=== PATIENT | male | born 1965 ===

== ENCOUNTER → 2017-06-28 | Outpatient (CLI) | payer BC ==
[2017-06-29 14:17] LABS: Basophils % (A) 1 %; CH 30.9; CHCM 33.8; Eosinophils # (A) 0.2 k/uL (0-0.7); Eosinophils % (A) 3 %; HCT 42.9 % (39.0-53.0); HDW 2.74; HGB 14.1 gm/dL (13.0-17.5); Luc # (Auto) 0.11; Luc % (Auto) 2; Lymphocytes % (A) 40 %; MCH 30.2 pg (25.0-35.0); MCHC 32.9 g/dL (31.0-37.0); MCV 91.8 fL (80.0-100.0); Mean Platelet Volume 7.1; Monocytes # (A) 0.4 k/uL (0-1.0); Monocytes % (A) 7 %; Neutrophils # (A) 2.3 k/uL (1.3-7.7); Neutrophils % (A) 46 %; RBC 4.67 m/uL (4.30-5.90); RDW 12.6 % (11.5-15.5); WBC 5.1 k/uL (3.8-10.6); WBC (Perox) 5.27
[2017-06-29 15:08] LABS: ALT 68 U/L (21-72); AST 36 U/L (17-59); Alkaline Phosphatase 40 U/L (38-126); Anion Gap 9 mmol/L; Blood Urea Nitrogen 17 mg/dL (9-20); Calcium 9.5 mg/dL (8.4-10.2); Carbon Dioxide 31 mmol/L (22-30); Chloride 104 mmol/L (98-107); Glucose 116 mg/dL (74-99); Non-African American GFR(MDRD) >60 (>60 ml/min/1.73 sqM); Potassium 4.4 mmol/L (3.5-5.1); Sodium 144 mmol/L (137-145); Total Bilirubin 0.4 mg/dL (0.2-1.3); Total Protein 6.3 g/dL (6.3-8.2)
[2017-06-29 15:54] LABS: Cholesterol 165 mg/dL (<200); HDL Cholesterol 47 mg/dL (40-60); Prostate Specific Antigen 0.42 ng/mL (0.00-4.00)
== END | disposition home or self-care (01) ==
LOC: LABWHC1 12:30
PROVIDERS: ATTEND Psychiatry & Neurology Pain Medicine
DX: Z00.00 Encounter for general adult medical examination without abnormal findings (principal); E78.00 Pure hypercholesterolemia, unspecified; E03.9 Hypothyroidism, unspecified; E55.9 Vitamin D deficiency, unspecified; E34.9 Endocrine disorder, unspecified; I10 Essential (primary) hypertension; R41.3 Other amnesia
CPT/HCPCS: 36415; 80053; 80061; 82306; 82607; 84153; 84207; 84403; 84439; 84443; 85025

== ENCOUNTER → 2017-08-27 | Outpatient (CLI) | payer BC ==
--- NOTE | 2017-08-27 15:03 | CONS ---
CONSULTATION REASON FOR CONSULTATION: Sleep apnea This is a 52-year-old male patient, who was referred to me for evaluation of sleep apnea/sleep breathing disorder. The patient has history of chronic anxiety and depression and he was treated to psychiatry with a combination of medications in the past. Specifically the patient was receiving a combination of Lexapro, Xanax, trazodone and Lamictal. Addition of trazodone was to improve this patient's sleep as the patient was having sleep fragmentation and difficulty maintaining sleep. He was also taking 10 mg of Ambien at nighttime. This combination of medications caused significant side effects as the patient was complaining of short-term memory loss and feeling drowsy and sleepy throughout the day. For the past 6 months, the patient gradually weaned himself off the antidepressant medication. Currently he is off Lamictal, Lexapro and trazodone and Xanax. He has been using Ambien 10 mg at bedtime. The drowsiness and memory loss, he was complaining of improved while him being off of these medications. Under the care of Dr. Winn the patient was not found to have any other neurologic disease or disorder. He is not having any symptoms of active depression for now. No active anxiety. He has hypothyroidism and he is on thyroid hormone replacement. In terms of his sleep quality, the patient used to be working the [employer] long [employer] for many years and his work schedule was between 6:00 am and 2:00 pm. As such, he had to get up from sleep at 4:30 am. Now that he is retired he is going to bed at 3:00 am in the morning. He gets out of bed at 10 a.m. in the morning. He averages around 7 hours of sleep a night. He is taking Ambien 10 mg at bedtime. He is able to initiate and maintain sleep without any major difficulties. He has some mild chronic soft snoring. No witnessed apneas. No nocturnal grinding of the teeth. No restlessness in lower extremities. No episodes of choking or gasping for air. No nocturia. Denies having a dry mouth in the morning. He does not take any naps during the day and he is able to drive without having to fall asleep. His current [place] score is 0. No head trauma. No history of any meningitis. No history of any substance abuse. PAST MEDICAL HISTORY: 1. Anxiety. 2. Depression. 3. Hypothyroidism. 4. Hyperlipidemia. 5. Chronic insomnia. PAST SURGICAL HISTORY: Includes none. ALLERGIES: None. Drug allergies are none. MEDICATIONS ARE: 1. Ambien 10 mg at bedtime. 2. Crestor 20 mg p.o. daily. 3. Levoxyl 175 mcg p.o. daily. SOCIAL HISTORY: The patient is a nonsmoker. No history of alcohol. No IV drugs. FAMILY HISTORY: Negative for sleep breathing disorder, insomnia or obstructive sleep apnea. REVIEW OF SYSTEMS: A 12-point review of system was done. The patient denies having any recent weight gain. In fact, he has lost around 12 pounds over the past 1 year. Appetite is good. No fever, chills or night sweats. No morning headaches. No altered mentation. Memory is improving. See discussion above. No active symptoms of severe anxiety or depression. No feeling of worthlessness. No suicidal ideation. No cough, sputum production, chest tightness or wheezing. No nausea vomiting or diarrhea. Abdominal pain. No dysuria, frequency or urgency. No nocturia. No grinding of the teeth. No palpitations or heartburn. No restlessness in lower extremities. No claustrophobia or sexual dysfunction. No focal neurological deficits. No motor weakness upper and lower extremities. No skin lesions. PHYSICAL EXAMINATION: His current vitals BP is 146/81, pulse 84, respirations 16, temperature, saturation 95% on room air. Weight is 244, height 5 feet 11 inches. Neck size is 16 and a quarter of an inch. GENERAL APPEARANCE: Calm, comfortable in no acute distress. Head is atraumatic, normocephalic. NECK: Supple. There is no JVD. No goiter or neck masses. LUNGS: Clear to auscultation. HEART: Sounds regular rhythm. Normal S1, S2. No S3. No murmurs. ABDOMEN: Soft, nontender. No organomegaly. EXTREMITIES: No edema. No cyanosis or clubbing. SKIN: Negative for any wounds or ulcerations. Psychiatric evaluation shows appropriate mood and affect. NEUROLOGIC: A and O x3. There is no focal neurological deficits. IMPRESSION: 1. Chronic insomnia, likely comorbid insomnia secondary to underlying anxiety/depression. The patient is currently on and Ambien 10 mg at bedtime. He is averaging about 7 hours of sleep without having any major hypersomnia or sleepiness during the day. Current [place] score is 0. 2. Short-term memory loss, likely drug induced which improved while the patient was taken off the combination of psychotropic/psychiatric medication. 3. History of depression currently on no treatment. 4. History of anxiety currently off treatment. 5. Delayed sleep phase syndrome as the patient goes to bed late at around 3:00 am in the morning. Yet he is able to average 7 hours of sleep and he is fully functional during the day. 6. Hypothyroidism. 7. Hyperlipidemia. PLAN: 1. We will do a home sleep study to screen the patient for any form of sleep breathing disorder. My overall suspicion is low. 2. Continue Ambien for now for insomnia for sleep induction and maintenance and my suggestion for this patient's ultimately cut down the dose of Ambien to 5 and discontinue if she is able to initiate and maintain sleep while off treatment or while at a lower dose. 3. Age related sleep hygiene was discussed with him at length. 4. Follow up with Dr. Winn regarding his memory loss. 5. We will continue to follow. MMODL / IJN: [id number] /
== END | disposition home or self-care (01) ==
LOC: SLEEP 13:36
PROVIDERS: ATTEND Internal Medicine Critical Care Medicine
DX: F51.04 Psychophysiologic insomnia (principal); R41.3 Other amnesia; R06.83 Snoring; E03.9 Hypothyroidism, unspecified; E78.5 Hyperlipidemia, unspecified; Z79.899 Other long term (current) drug therapy
CPT/HCPCS: 99211

== ENCOUNTER 2024-01-02 18:01 | Emergency (ER) | payer BC ==
[2024-01-02 18:39] VITALS: TEMP 98.5
[2024-01-02] MEDS: DIPH,PERTUS(ACELL)TETVAC-LF 0.5 ML VIAL IM ONE (18:54)
--- NOTE | 2024-01-02 19:38 | ED ---
General Adult HPI - General Chief complaint: Extremity Injury, Upper Stated complaint: dog bite Time Seen by Provider: 01/02/24 18:41 Source: patient, RN notes reviewed Mode of arrival: ambulatory Limitations: no limitations - History of Present Illness Initial comments: 58-year-old male presents to the emergency department for evaluation of dog bite to bilateral hands. Patient states that he has currently fostering dogs and 2 of the dogs began to fight. He states that he attempted to break them up and got bit in both of his hands by the dog. His last tetanus vaccine was greater than 10 years ago. Dog is up-to-date on shots including rabies. - Related Data Previous Rx's Medication Instructions Recorded Amoxic-Pot Clav 875-125Mg 1 tab PO Q12HR #20 tab 01/02/24 [Augmentin 875-125] Allergies Allergy/AdvReac Type Severity Reaction Status Date / Time No Known Allergies Allergy Verified 01/02/24 18:39 Review of Systems ROS Statement: Those systems with pertinent positive or pertinent negative responses have been documented in the HPI. ROS Other: All systems not noted in ROS Statement are negative. Past Medical History Past Medical History: No Reported History History of Any Multi-Drug Resistant Organisms: None Reported Past Surgical History: No Surgical Hx Reported Past Alcohol Use History: None Reported Past Drug Use History: None Reported General Exam Limitations: no limitations General appearance: alert, in no apparent distress Head exam: Present: atraumatic, normocephalic, normal inspection Eye exam: Present: normal appearance, PERRL, EOMI. Absent: scleral icterus, conjunctival injection, periorbital swelling ENT exam: Present: normal exam, mucous membranes moist Extremities exam: Present: full ROM, normal capillary refill, other (Multiple lacerations to the second and third fingers of both hands). Absent: tenderness, pedal edema, joint swelling, calf tenderness Neurological exam: Present: alert, oriented X3 Psychiatric exam: Present: normal affect, normal mood Skin exam: Present: warm, dry, other (lacerations present to 2nd and 3rd fingers of bilateral hands with largest being 3cm). Absent: intact Course Vital Signs 01/02/24 01/02/24 18:36 22:13 Temperature 98.5 F Pulse Rate 86 73 Respiratory 16 18 Rate Blood Pressure 163/94 130/89 O2 Sat by Pulse 98 96 Oximetry Procedures - Laceration Laceration #1 Consent Obtained: verbal consent Indication: laceration Site: hand Size (cm): 3 Description: linear Depth: simple, single layer Anesthetic Used: lidocaine 1% Anesthesia Technique: local infiltration Pre-repair: wound explored, irrigated extensively Type of Sutures: other Size of Sutures: 4-0 Number of Sutures: 4 Technique: simple, interrupted Patient Tolerated Procedure: well, no complications Laceration #2 Consent Obtained: verbal consent Indication: laceration Site: hand Size (cm): 1 Description: linear Depth: simple, single layer Anesthetic Used: lidocaine 1% Anesthesia Technique: local infiltration Pre-repair: wound explored, irrigated extensively Type of Sutures: other Size of Sutures: 4-0 Number of Sutures: 2 Technique: simple, interrupted Patient Tolerated Procedure: well, no complications Laceration #3 Consent Obtained: verbal consent Indication: laceration Site: hand Size (cm): 1 Description: linear Depth: simple, single layer Anesthetic Used: lidocaine 1% Anesthesia Technique: local infiltration Pre-repair: wound explored, irrigated extensively Type of Sutures: other Size of Sutures: 4-0 Number of Sutures: 1 Technique: simple, interrupted Patient Tolerated Procedure: well, no complications Laceration #4 Consent Obtained: verbal consent Indication: laceration Site: hand Size (cm): 1 Description: linear Depth: simple, single layer Anesthetic Used: lidocaine 1% Anesthesia Technique: local infiltration Pre-repair: wound explored, irrigated extensively Size of Sutures: 4-0 Number of Sutures: 2 Technique: simple, interrupted Patient Tolerated Procedure: well, no complications Medical Decision Making - Medical Decision Making Was pt. sent in by a medical professional or institution (, PA, [employer], urgent care, hospital, or retirement...) When possible be specific @ -No Did you speak to anyone other than the patient for history (EMS, parent, family, police, friend...)? What history was obtained from this source @ -No Did you review nursing and triage notes (agree or disagree)? Why? @ -I reviewed and agree with nursing and triage notes Were old charts reviewed (outside hosp., previous admission, EMS record, old EKG, old radiological studies, urgent care reports/EKG's, retirement records)? Report findings @ -No old charts were reviewed Differential Diagnosis (chest pain, altered mental status, abdominal pain women, abdominal pain men, vaginal bleeding, weakness, fever, dyspnea, syncope, headache, dizziness, GI bleed, back pain, seizure, CVA, palpatations, mental health, musculoskeletal)? @ -Dog bite, rabies prophylaxis, laceration, this list is not all inclusive EKG interpreted by me (3pts min.). @ -None X-rays interpreted by me (1pt min.). @ -X-rays of bilateral hands show no evidence of foreign body or fracture CT interpreted by me (1pt min.). @ -None done U/S interpreted by me (1pt. min.). @ -None done What testing was considered but not performed or refused? (CT, X-rays, U/S, labs)? Why? @ -None What meds were considered but not given or refused? Why? @ -None Did you discuss the management of the patient with other professionals (professionals i.e. , PA, [employer], lab, RT, psych nurse, social media coordinator, hospital technician, teacher, dog control officer, case consultant)? Give summary @ -No Was smoking cessation discussed for >3mins.? @ -No Was critical care preformed (if so, how long)? @ -No Were there social determinants of health that impacted care today? How? (Homelessness, low income, unemployed, alcoholism, drug addiction, transpo rtation, low edu. Level, literacy, decrease access to med. care, assisted, rehab)? @ -No Was there de-escalation of care discussed even if they declined (Discuss DNR or withdrawal of care, Hospice)? DNR status @ -No What co-morbidities impacted this encounter? (DM, HTN, Smoking, COPD, CAD, Cancer, CVA, ARF, Chemo, Hep., AIDS, mental health diagnosis, sleep apnea, morbid obesity)? @ -None Was patient admitted / discharged? Hospital course, mention meds given and route, prescriptions, significant lab abnormalities, going to OR and other pertinent info. @ -Discharged. Patient presents to the emergency department for evaluation of dog bites to bilateral hands. XR obtained shows no evidence of foreign body or fracture. Patient has full ROM to all fingers. The wounds were extensively irrigated. There are multiple gaping lacerations requiring loose suturing. Patient was updated on his tetanus vaccination. Dogs are up-to-date on rabies vaccinations. Patient advised wound care and to pick up and delivery driver antibiotics and take to completion. He is understanding and agreeable with this plan. Patient stable at time of discharge. Case discussed with Dr. Alvarez Undiagnosed new problem with uncertain prognosis? @ -No Drug Therapy requiring intensive monitoring for toxicity (Heparin, Nitro, Insulin, Cardizem)? @ -No Were any procedures done? @ -Sutures Diagnosis/symptom? @ -Dog bites Acute, or Chronic, or Acute on Chronic? @ -Acute Uncomplicated (without systemic symptoms) or Complicated (systemic symptoms)? @ -Uncomplicated Side effects of treatment? @ -No Exacerbation, Progression, or Severe Exacerbation? @ -No Poses a threat to life or bodily function? How? (Chest pain, [place], [place], pneumonia, PE, COPD, DKA, ARF, appy, cholecystitis, CVA, Diverticulitis, Homicidal, Suicidal, threat to staff... and all critical care pts) @ -No Disposition Clinical Impression: Dog bite Disposition: HOME SELF-CARE Condition: Stable Instructions (If sedation given, give patient instructions): Animal Bite (ED) Additional Instructions: Please follow up with your primary care provider. Return to the emergency department for new or worsening symptoms. Prescriptions: Amoxic-Pot Clav 875-125Mg [Augmentin 875-125] 1 tab PO Q12HR #20 tab Is patient prescribed a controlled substance at d/c from ED?: No Referrals: Gail Fine MD [Primary Care Provider] - 1-2 days
[2024-01-02] MEDS: LIDOCAINE 1% INJ 10MG/ML (20 ML MDV) SQ ONE (20:12)
--- NOTE | 2024-01-02 20:40 | XR ---
EXAMINATION TYPE: XR hand complete bilateral DATE OF EXAM: 01/02/2024 7:11 PM CLINICAL INDICATION:Male, 58 years old with history of dog bite; [facility] COMPARISON: None TECHNIQUE: 3 views FINDINGS: Osseous mineralization appears appropriate. No destructive bony lesion. No acute fracture or dislocat ion. Joint spaces are maintained, with minimal degenerative changes. There are scattered soft tissue injuries indicated, most prominently at the tip of the left index finger. No unexpected radiopaque fo reign bodies are seen. There is a ring on the left fourth digit. IMPRESSION: 1. No evidence of acute fracture or dislocation. 2. Soft tissue injuries without evidence of radiopaque foreign body.
[2024-01-02 22:16] VITALS: BP 130/89; PULSE 73; RESP 18
== END 2024-01-02 22:12 | disposition home or self-care (01) ==
LOC: EC 18:01
DX: S61.211A Laceration without foreign body of left index finger without damage to nail, initial encounter (principal); S61.213A Laceration without foreign body of left middle finger without damage to nail, initial encounter; S61.210A Laceration without foreign body of right index finger without damage to nail, initial encounter; S61.212A Laceration without foreign body of right middle finger without damage to nail, initial encounter; Z23 Encounter for immunization; W54.0XXA Bitten by dog, initial encounter
CPT/HCPCS: 12002; 99283; 90471; 73130; 90715; J2001